=== PATIENT | female | born 1980 | race Caucasian/White ===

== ENCOUNTER 2022-05-02 03:25 | Outpatient (CLI) | payer MEDICAID, SELFPAY | END 2022-05-02 03:26 | disposition home or self-care (01) | LOC: LBO 03:25 | PROVIDERS: Visit Provider Nurse Practitioner Family ==

== ENCOUNTER 2022-08-04 16:09 | Outpatient (REF) | payer MEDICAID, SELFPAY | END 2022-08-04 16:10 | disposition home or self-care (01) | LOC: LBN 16:09 | PROVIDERS: Visit Provider Nurse Practitioner Family | DX: L08.89 Other specified local infections of the skin and subcutaneous tissue (principal) | CPT/HCPCS: 87077; 87070; 87205 ==

== ENCOUNTER 2023-01-20 10:27 | Emergency (ER) | payer MEDICAID, SELFPAY ==
[2023-01-20 10:43] VITALS: BP 147/105; PULSE 120; RESP 18; TEMP 37.2; O2SAT 96
--- NOTE | 2023-01-20 11:00 | ED.GENADUL_ITS ---
Discharge Plan Disposition Patient Disposition: Home Condition: Stable Discharge Details Clinical Impression: Acute streptococcal pharyngitis Primary Care Provider: Georgina,Local ED Provider: Liz Ha Home Meds and New Rx's Prescriptions: New prednisone 20 mg tablet 40 mg PO DAILY 3 Days Qty: 6 0RF Continued PNV cmb#95-ferrous fumarate-FA 1 EACH tablet 2 tab PO DAILY Discharge Instructions Instructions: Pharyngitis (ED), Strep Throat (ED) Additional Instructions: Your rapid strep test today is positive. You were given an intramuscular antibiotic injection here in the emergency department for treatment of your strep throat. You potentially also could have mononucleosis which is a viral illness and is treated with supportive care with fluids, rest and alternating Tylenol and Motrin. You were also given a dose of steroids to help with swelling and pain. A prescription for an additional 3 days of steroids has been sent electronically to your pharmacy to start tomorrow to help with additional swelling and pain relief. Follow-up with your primary care doctor in 1 week and for referral to the Ear Nose and Throat doctor for reevaluation as needed. Return immediately to the emergency department with any worsening or new concerning symptoms such as fever, worsening pain, difficulty swallowing or any other concerns. Referrals: Leroy Felton MD [ [facility] STAFF PHYSICIAN] - Discharge Data Discharge Date/Time-TO BE ENTERED AT DEPARTURE: 01/20/23 12:19 Discharge Physician: Liz Ha Medical Decision Making 42-year-old female presents with sore throat, nasal congestion and rhinorrhea for the past 3 days. She states the sore throat is bothering her the most. Patient appears uncomfortable. She has bilateral tonsillar edema, erythema and exudates with mild to moderate increase in swelling noted to the left tonsil but no obvious area of fluctuance and uvula appears midline. She has no drooling, trismus, submandibular swelling or significant lymphadenopathy. She is able to swallow liquids and there is no stridor, sensation of muffled or hot potato voice. Rapid strep positive. test negative. Also discussed the possibility of mononucleosis. Discussed with patient that although she has slight increase of left tonsillar swelling, there does not appear to be an obvious concerning abscess at this time but advised to continue to monitor closely. We will treat with steroids to help with edema. She was offered an oral antibiotic or Bicillin injection and she would prefer injection. We will give 1 dose of Decadron p.o., Motrin and Tylenol p.o. and IM Bicillin here. We will also send a prescription for 3 days of oral steroids to help with edema. She is advised to drink plenty of fluids and continue to alternate Tylenol and Motrin. Will give ENT follow-up if needed. She is advised to return here immediately if she develops any worsening or new concerning symptoms for reevaluation and consideration for imaging at that time. Medical Records Medical records reviewed: Yes I reviewed the patient's medical records. HPI General Mode of arrival: ambulatory . Date/Time Provider Initiated Documentation: 01/20/23 10:47 . Limitations to Documentation: no limitations . Information obtained by: patient . HPI Narrative: Patient is a 42-year-old female who presents with sore throat, runny nose and nasal congestion for the past 3 days. Patient states the sore throat is bothering her the most. 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 She denies any known exposure to strep throat or COVID recently. Patient last took NSAIDs yesterday. She has not taken any medication for pain today. She denies any known fever. She states she has been able to swallow liquids and admits to pain throughout entire throat and no sense of worsening on one side. She denies any significant cough, shortness of breath or neck pain. Related Data Home Medications Medication Instructions Recorded Confirmed vit no.95-ferrous 2 tab PO DAILY 03/10/16 03/10/16 fumarate 28 mg-folic acid 800 mcg tablet prednisone 20 mg tablet 40 mg PO DAILY 3 days #6 tabs 01/20/23 Previous Rx's Medication Instructions Recorded prednisone 20 mg tablet 40 mg PO DAILY 3 days #6 tabs 01/20/23 Allergies Allergy/AdvReac Type Severity Reaction Status Date / Time No Known Allergies Allergy Unverified 03/10/16 18:55 General Stated Complaint: ThroatFB GENEVIEVE: 4 Review of Systems All systems reviewed & are unremarkable except as noted in HPI and below Constitutional Constitutional: Reports as per HPI, Denies chills and Denies fever(s) Eyes Eyes: Denies blurry vision ENT Ears, Nose, Mouth, and Throat: Denies dizziness, Reports nasal congestion, Repo rts nasal discharge, Reports sore throat and Denies throat swelling Cardiovascular Cardiovascular: Denies chest pain and Denies dyspnea Respiratory Respiratory: Denies cough and Denies dyspnea Gastrointestinal Gastrointestinal: Denies abdominal pain, Denies diarrhea and Denies vomiting Genitourinary Genitourinary: Denies hematuria and Denies dysuria Musculoskeletal Musculoskeletal: Denies back pain and Denies numbness Integumentary/Breasts Skin/Breast: Denies lesions and Denies rash Neurologic Neurologic: Denies dizziness, Denies localized weakness and Denies numbness Allergic/Immunologic Allergic/Immunologic: Denies throat swelling PFSH All Active Problems (Updated 01/20/23 @ 11:44 by Liz Ha DO) Acute streptococcal pharyngitis (Acute) Medical History (Updated 01/20/23 @ 11:44 by Liz Ha DO) No significant past medical history Surgical History (Updated 01/20/23 @ 11:36 by Liz Ha DO) Hx of cholecystectomy Social History Smoking/Tobacco Use Status: Never Smoking risk assessment performed?: Yes Drug use: Never Substance use type: does not use Do you feel safe at home: Yes Do you feel safe in your relationship?: Yes Exam Const General: cooperative, uncomfortable and no acute distress Orientation: alert, awake and oriented x3 HENMT Head: normal to inspection Ears: hearing grossly normal bilaterally, external ears normal and TM's normal bilaterally General nose exam: external nose normal Mouth: oral mucosae normal, no drooling and no trismus Throat: uvula midline and posterior oropharynx abnormal edema, erythema and exudates Other: Patient has bilateral tonsillar edema, erythema and exudates. There is slightly more increased swelling noted to the left tonsil area compared to the right to nsil but no significant fluctuance. Eyes General: appearance normal, both eyes and all related structures Neck Neck: normal visual inspection, no lymphadenopathy, no meningeal signs, trachea midline, supple, no anterior neck swelling and No submandibular swelling Resp Effort & Inspection: normal respiratory effort and able to speak in complete sentences Cardio Rate: regular rate Skin General skin exam: no rashes or lesions noted Neuro General: patient alert, patient awake and patient oriented x3 Motor: muscle tone normal throughout Extrem General: normal to inspection and full ROM Psych Appearance: grossly normal Affect: normal affect Course Vital Signs Vital signs: Vital Signs Temperature 99.0 F 01/20/23 10:43 Pulse 120 H 01/20/23 10:43 Respiratory Rate 18 01/20/23 10:43 Blood Pressure 147/105 H 01/20/23 10:43 Pulse Oximetry 96 01/20/23 10:43 Temperature 99.0 F 01/20/23 10:43 Temperature Source Oral 01/20/23 10:43 Pulse 120 H 01/20/23 10:43 Respiratory Rate 18 01/20/23 10:43 Respiratory Effort Normal 01/20/23 10:56 Blood Pressure 147/105 H 01/20/23 10:43 Blood Pressure Position Sitting 01/20/23 10:43 Pulse Oximetry 96 01/20/23 10:43 Oxygen Delivery Method Room Air 01/20/23 10:43 Oxygen Flow Rate 0 01/20/23 10:43 Pain Level 10 01/20/23 10:43 Lab/Test Results Lab/Test Results: POC Strep Test-CARMEN(Rapid) Start: 01/20/23 10:52 Freq: Status: Active Protocol: Document 01/20/23 10:53 YAMILA (Rec: 01/20/23 10:53 [id number]) Strep test-CARMEN(Rapid)-POC POC-Strep test-CARMEN (Rapid) Positive POC-Strep test-CARMEN (Rapid) Positive
[2023-01-20] MEDS: Dexamethasone 10 MG/ML VIAL PO (11:21)
[2023-01-20] MEDS: Acetaminophen 500 MG TAB 1000 MG PO (11:21)
[2023-01-20] MEDS: Ibuprofen 600 MG TAB PO (11:22)
== END 2023-01-20 12:19 | disposition home or self-care (01) ==
PROVIDERS: Emergency Provider Physician Assistant
DX: J02.0 Streptococcal pharyngitis (principal)
CPT/HCPCS: 81025; 87880; 96372; 99284; J0561; J1100

== ENCOUNTER 2023-04-26 10:55 | Outpatient (CLI) | payer MEDICAID, SELFPAY ==
[2023-04-26 09:30] LABS: Abs Immature Grans 0.03 10^3/uL (0.0-0.06); Absolute Basophil Count 0.03 10^3/uL (0.0-0.2); Absolute Eosinophil Count 0.17 10^3/uL (0.0-0.7); Absolute Lymphocyte Count 2.16 10^3/uL (1.2-3.4); Absolute Monocyte Count 0.47 10^3/uL (0.1-0.8); Absolute Neutrophil Count 4.83 10^3/uL (1.2-6.7); Basophils % 0.4; Eosinophils % 2.2; HGB 13.9 g/dL (11.2-15.7); Immature Grans % 0.4; Lymphocytes % 28.1; MCH 32.9 pg (27.0-33.0); MCHC 33.1 % (32.0-36.0); MCV 99 fL (80-95); Monocytes % 6.1; Neutrophils % 62.8; Platelet Count 234 10^3/uL (130-400); RBC 4.23 10^6/uL (3.93-5.22); RDW 12.3 % (11.7-14.6); RDW-SD 44.8 fL; WBC 7.69 10^3/uL (4.4-10.8)
[2023-04-26 10:13] LABS: ALT 26 U/L (14-59); AST 17 U/L (15-37); Albumin 3.5 g/dL (3.4-5.0); Alkaline Phosphatase 79 U/L (46-116); Anion Gap 6.8 mmol/L (3-11); BUN 11 mg/dL (7-18); Bilirubin, Total 0.5 mg/dL (0.2-1.0); CO2 30.2 mmol/L (21.0-32.0); CREATININE 0.7 mg/dL (0.55-1.02); Calcium 8.9 mg/dL (8.5-10.1); Calculated LDL 123 mg/dL (<100); Chloride 103 mmol/L (98-107); Cholesterol 198 mg/dL (<200); Estimated GFR 109.98 (mL/min/1.73m2); Glucose 82 mg/dL (74-106); HDL Cholesterol 38 mg/dL (40-60); Potassium 4.5 mmol/L (3.5-5.1); Sodium 140 mmol/L (136-145); TSH (W/Ref FT4) 2.03 uIU/mL (0.36-3.74); Total Protein 7.7 g/dL (6.4-8.2); Triglyceride 185 mg/dL (<150)
== END 2023-04-26 10:56 | disposition home or self-care (01) ==
LOC: LBO 10:55
PROVIDERS: Visit Provider Nurse Practitioner Family
DX: E03.9 Hypothyroidism, unspecified (principal); R53.83 Other fatigue; E78.89 Other lipoprotein metabolism disorders; Z13.1 Encounter for screening for diabetes mellitus
CPT/HCPCS: 36415; 80053; 80061; 84443; 85025

== ENCOUNTER 2023-12-23 07:41 | Day surgery (SDC) | payer MEDICAID, SELFPAY ==
--- NOTE | 2023-12-22 07:12 | W.PM.DSUDISC ---
Date of service: 12/23/23 Time of Service: 09:18 Discharge Plan Disposition Patient Disposition: Home Condition: Good Discharge Details Reason For Visit: screening colonoscopy Attending Provider: David Garcia Primary Care Provider: Pilar Colon Home Meds and New Rx's Prescriptions: Continued venlafaxine 150 mg capsule,extended release 24hr 150 mg PO QAM Qty: 30 2RF clobetasol 0.05 % cream 1 applic topical DAILY Qty: 30 0RF Rx Instructions: Use to hands, feet PRN Discontinued bisacodyl [Dulcolax (bisacodyl)] 5 mg tablet,delayed release (DR/EC) 5 mg PO ONCE Qty: 4 0RF Rx Instructions: Colonoscopy Bowel Prep- Per Instructions polyethylene glycol 3350 17 gram/dose powder 238 g PO ONCE Qty: 238 0RF Rx Instructions: Colonoscopy Bowel Prep- Per Instructions Discharge Instructions Additional Instructions: Isatu, we were able to complete your colonoscopy today without any difficulty. Your prep was excellent, we could see everything just fine. The colonoscopy was totally normal. Because of your family history, I recommend a screening interval of every 5 years. If you have any questions in the meantime, please do not hesitate to call at any time. 1. If tolerated, consume a soft, low fiber diet for 1-2 days. 2[address] Do not drive, drink alcohol, operate machinery, make critical decisions, or do activities that require coordination or balance for 24 hours. 3. Because air was put into your colon during the procedure, expelling air from your rectum (passing gas or farting) is normal. 4. You may not have a bowel movement for 1-3 days because of the colonoscopy prep. This is normal. 5. Go directly to the emergency room if you notice any of the following: Develop chills (warm to touch), or if you have a thermometer and your temperature is above 101 Difficulty breathing or difficultly swallowing Persistent vomiting Severe abdominal pain, other than gas cramps Severe chest pain Black, tarry stools Any bleeding ? exceeding one tablespoon 6. Call your physician if the site where your intravenous was started becomes red, swollen, painful, and warm to touch. 7. Your physician has reviewed your pre-procedure medications. Please continue to take those medications as previously ordered. You will be given specific information/education regarding any changes to your medications before leaving. Activity:: Activity as Tolerated Diet:: As Tolerated Discharge Orders Discharge Orders: Discharge Order (Routine); Ordered 12/22/23 Ordered By: David Garcia DS: Diagnosis Discharge Diagnosis (1) Encounter for screening colonoscopy: Status: Acute Asessment and Plan: Negative screening colonoscopy; based on family history, recommend 5-year interval follow-up
--- NOTE | 2023-12-22 07:13 | W.COLOREPORT ---
Date of service: 12/23/23 Time of Service: 09:19 Colonoscopy Report Date of procedure: 12/23/23 Pre-op diagnosis general: screening colonoscopy Post-op diagnosis procedure note: other (Negative screening colonoscopy) Procedure: colonoscopy Surgeon: David Garcia Anesthesia Type: General:No Airway Estimated blood loss (mL): 0 Pathology: none sent Complications: None Disposition: same day Indications: Isatu is a 43 year old woman with a family history of colon cancer who needs a s screening colonoscopy Prep: Miralax/Dulcolax Procedure Start Time: 08:56 Procedure End Time: 09:10 Retraction Time: 6 Findings: Negative screening colonoscopy Procedure Description: After the induction of monitored anesthetic care, and with the patient in left lateral decubitus position, I began by performing an external anorectal exam.? Perineum and skin were normal, as was the anal verge.? There was no evidence of external hemorrhoids.? Next, I performed a digital rectal exam.? I did not appreciate any abnormal findings.? Next, I advanced a colonoscope into the rectal vault.? I performed retroflexion.? This was normal.? Using insufflation, I then advanced the colonoscope beyond the rectal folds and into the sigmoid colon before advancing towards the cecum.? The quality of the prep was excellent.? The scope was noted to be in the cecum by identification of the ileocecal valve and appendiceal orifice.? I then began withdrawing the colonoscope using repeated irrigation as necessary for full evaluation of the colonic mucosa. ?Once the scope was withdrawn to the level of the rectum, great care was taken to examine portions of the rectal folds.? I did not see any signs of tumors, polyps, or any other worrisome pathology. Finally, the scope was withdrawn and the patient was brought to the same-day surgery recovery unit as the anesthetic wore off. ?The findings and instructions were shared with the patient prior to discharge. [place] Bowel Prep [place] Bowel Prep Right Colon: 3 Left Colon: 3 Transverse Colon: 3 Total Score: 9
[2023-12-23] MEDS: Lactated Ringers 1,000 ML 80 ML IV (08:03)
[2023-12-23 08:38] VITALS: BP 140/89; PULSE 104; RESP 16; TEMP 36.3; O2SAT 94
--- NOTE | 2023-12-23 08:43 | W.ANESPRE ---
General Info Date of Service Date Performed: 12/23/23 Height: 5 ft 6 in Weight: 105.3 kg Body Mass Index (BMI): 37.4 Surgical Procedure: Operation Date: 12/23/23 09:05 Proposed Procedure Side Surgeon p Colonoscopy David Garcia MD Meds Allergies and Home Medications Allergies Allergy/AdvReac Type Severity Reaction Status Date / Time No Known Allergies Allergy Verified 12/23/23 08:04 Home Medication Medication Instructions Recorded clobetasol 0.05 % topical cream 1 applic topical DAILY #30 grams 10/07/23 venlafaxine 150 mg 150 mg PO QAM #30 caps 11/28/23 capsule,extended release 24 hr Current Visit Medications: Current Medications Generic Name Dose Route Start Last Admin Trade Name Freq PRN Reason Stop Dose Admin Hyoscyamine Sulfate 0.125 mg 12/23/23 07:14 Hyoscyamine 0.125 Mg Sl/Oral/Chew SL 01/22/24 07:13 DIRECTED PRN Ringer's Solution 1,000 mls @ 80 mls/hr 12/23/23 06:00 12/23/23 08:03 IV 01/19/24 23:59 80 mls/hr INFUSION KELLEY Administration IV Miscellaneous Supplies 1 each 12/23/23 06:00 Iv Access IV 01/19/24 23:59 DIRECTED KELLEY Ondansetron HCl 4 mg 12/23/23 07:14 Ondansetron 4 Mg/2 Ml Vial IVP 01/22/24 07:13 Q4H PRN PRN Nausea / Vomiting Sodium Chloride 0 ml 12/23/23 06:00 Normal Saline Flush 10 Ml Syr IV 01/19/24 23:59 PRN PRN Sodium Chloride 0 ml 12/23/23 06:00 Normal Saline 10 Ml Vial IJ 01/19/24 23:59 DIRECTED PRN Sterile Water 0 ml 12/23/23 06:00 Water,Injection,Sterile 10 Ml Vial IJ 01/19/24 23:59 DIRECTED PRN PFSH Active Problems Active Problems: Problem Status Onset Code Encounter for screening colonoscopy Z12.11 Anxiety and depression F41.9, F32.A Surgical History Surgical History Hx of cholecystectomy (~2003) [facility] Tobacco Smoking/Tobacco Use Status: Never Passive smoking exposure: No Alcohol Alcohol Intake: never Substance Use Substance use: Never Substance use type: does not use Vital Signs and Lab Results Vital Signs Most Recent Vital Signs in EMR: Most Recent Vital Signs Temp Pulse Resp BP Pulse Ox 36.3 C L 104 H 16 140/89 94 12/23/23 08:38 12/23/23 08:38 12/23/23 08:38 12/23/23 08:38 12/23/23 08:38 Point of Care Results Point of Care Results: POC- Test(urine) Negative 12/23/23 08:03 Lab Results Blood Type / Crossmatch: No Data to Display Complete Blood Count: No Data to Display Complete Metabolic Panel: No Data to Display Liver Function Panel: No Data to Display Coagulation Panel: No Data to Display Cardiac Panel: No Data to Display Arterial Blood Gas: No Data to Display Venous Blood Gas: No Data to Display Pancreas Panel: No Data to Display Thyroid Panel: No Data to Display Infectious Disease: No Data to Display Blood Cultures: No Data to Display Toxicology Panel: No Data to Display Panel: No Data to Display Anesthesia Assessment and Plan Anesthesia History Personal History: No History of Anesthesia Complications Family History: No Family History of Anesthesia Complications Exercise Tolerance Exercise Tolerance: Metabolic Equivalents>4 Pertinent Negatives Pertinent Negatives: No Symptoms of GERD, No Major Cardiovascular Symptoms or Complaints, No Major Pulmonary Symptoms or Complaints and No History of CVA/TIA Cardiac & Pulmonary Exam Cardiac Exam: Normal S1/S2 Heart Sounds Pulmonary Exam: Clear Bilateral Breath Sounds Implantable Cardiac Device Does patient have a Pacemaker or an ICD?: No Airway Exam Known Difficult Airway: No Mallampati Class: 3 Mouth Opening: Normal (> 3cm) Thyromental Distance: Greater than 3 cm Neck Range of Motion: Full ROM Neck Circumference: Thick Teeth Condition: Normal Dentition ASA Classification ASA Score: ASA 2 Emergency Case?: No NPO Status NPO Status: NPO Clears >2 hours, Solids >8 hours Status Status: Negative HCG Anesthesia Plan Resuscitation Status: Full Code Anesthesia Technique: General Anesthesia Airway Planned: Natural Airway Monitors Used: Standard Monitors Preoperative Comments:: Depression, anxiety. Family hx of colon CA
[2023-12-23 08:46] VITALS: BMI 37.4
[2023-12-23 09:17] VITALS: BP 101/72; PULSE 88; RESP 16; TEMP 36.4; O2SAT 93
--- NOTE | 2023-12-23 09:30 | W.ANESPOSTOP ---
Postoperative Evaluation Date, Time and Location Date Performed: 12/23/23 Time Performed: : Patient Location: Day Surgery Unit Vital Signs Most Recent Imported Vital Signs: Most Recent Vital Signs Temp Pulse Resp BP Pulse Ox 36.4 C L 88 16 101/72 93 12/23/23 09:17 12/23/23 09:17 12/23/23 09:17 12/23/23 09:17 12/23/23 09:17 Pain Score Most Recent Pain Score: Most Recent Pain Score Pain Level 0 12/23/23 09:17 Assessment Mental Status: Awake (Alert & Oriented to Patient Baseline) Airway and Respiratory Function: Patent airway with normal (patient baseline) respiratory exam Cardiovascular Function: Hemodynamically Stable Hydration Status: Adequately Hydrated Nausea & Vomiting: No Nausea or Vomiting Pain: Pt. Denies Any Pain Peripheral Nerve Block: Patient did not receive a nerve block
[2023-12-23 09:50] VITALS: BP 102/85; PULSE 81; RESP 16; TEMP 36.6; O2SAT 98
== END 2023-12-23 07:42 | disposition home or self-care (01) ==
LOC: SUR 07:41
PROVIDERS: PCP Nurse Practitioner; Visit Provider Surgery
PROC: 0DJD8ZZ Inspection of Lower Intestinal Tract, Via Natural or Artificial Opening Endoscopic (ICD-10-PCS; CPT 45378; principal; 2023-12-23 09:00)
DX: Z12.11 Encounter for screening for malignant neoplasm of colon (principal); Z80.0 Family history of malignant neoplasm of digestive organs
CPT/HCPCS: 45378; 81025; J2001; J2405; J2704

== ENCOUNTER 2025-09-28 12:24 | Outpatient (REF) | payer SELFPAY | END 2025-09-28 12:25 | disposition home or self-care (01) | LOC: LBN 12:24 | PROVIDERS: PCP Nurse Practitioner; Visit Provider Nurse Practitioner Family | DX: N10 Acute pyelonephritis (principal) | CPT/HCPCS: 87077; 87086; 87186 ==